=== PATIENT | female | born 1960 | race Two or more races ===

== ENCOUNTER 2019-09-28 09:54 | Outpatient (CLI) | payer OTHER ==
[~2019-09-28 09:54] MED LIST: ATORVASTATIN CA10 MG; SYNTHROID75 MCG
== END 2019-09-28 10:00 | disposition home or self-care (01) ==
LOC: LAB 09:54
DX: J11.1 Influenza due to unidentified influenza virus with other respiratory manifestations (principal); J20.0 Acute bronchitis due to Mycoplasma pneumoniae